=== PATIENT | female | born 1985 | race Caucasian/White ===

== ENCOUNTER 2022-01-13 19:04 | Emergency (ER) | payer BC | END 2022-01-13 22:40 | disposition home or self-care (01) | LOC: JD.ED 19:04 | DX: O26.851 Spotting complicating pregnancy, first trimester (principal); Z3A.01 Less than 8 weeks gestation of pregnancy; Z79.899 Other long term (current) drug therapy | CPT/HCPCS: 36415; 76817; 76817-26; 84702; 85014; 85018; 86900; 86901; 99284 ==